=== PATIENT | female | born 1990 | race Caucasian/White ===

== ENCOUNTER → 2017-10-15 | Outpatient (REF) | payer OTHER, MEDICAID | LOC: M LAB REF 19:24 | DX: J02.9 Acute pharyngitis, unspecified (principal) | CPT/HCPCS: 87081 ==

== ENCOUNTER → 2017-11-03 | Outpatient (REF) | payer OTHER | LOC: M LAB REF 12:12 | DX: N30.00 Acute cystitis without hematuria (principal) ==

== ENCOUNTER 2018-08-05 10:01 | Emergency (ER) | payer MEDICAID, OTHER ==
[~2018-08-05] VITALS: Ht 152.4 cm; Wt 84.1 kg
[2018-08-05] MEDS ORDERED: EFFE150C2 (10:20)
[2018-08-05] MEDS ORDERED: MICR1TAB18 (10:20)
[2018-08-05] MEDS ORDERED: ABIL10TA9 (10:20)
[2018-08-05] MEDS ORDERED: ARIP1TAB4 (10:20)
[2018-08-05] MEDS ORDERED: IBUP-1114 PO (10:20)
[2018-08-05] MEDS ORDERED: NORCO, ANEXSIA 5/325MG TABLET (HYDROcodone/ACETAMINOPHEN) PO ONE (11:00)
--- NOTE | 2018-08-05 11:47 | REP ---
Left knee series: Four views. History: Pain after feeling a pop. Findings: Four views of the left knee are presented. The patient was apparently unable to position herself for the sunrise view. Four views obtained demonstrate normal bones, joints and soft tissues. No fracture is seen. There is no evidence of joint effusion. Impression: Negative radiographs of the left knee. Patient unable to do sunrise positioning. Electronically Signed by Logan Smith MD 08/05/2018 12:14 P
[2018-08-05] MEDS ORDERED: HYDR-3715 PO (12:04)
[2018-08-05] MEDS ORDERED: ONDA4TAB6 PO (12:10)
[2018-08-05 12:17] VITALS: BP 139/90
== END 2018-08-05 12:18 | disposition home or self-care (01) ==
LOC: M ED 10:01
DX: S89.92XA Unspecified injury of left lower leg, initial encounter (principal); X58.XXXA Exposure to other specified factors, initial encounter; Y92.092 Bedroom in other non-institutional residence as the place of occurrence of the external cause; Y93.89 Activity, other specified; Y99.9 Unspecified external cause status; F41.9 Anxiety disorder, unspecified; M25.861 Other specified joint disorders, right knee; Z79.899 Other long term (current) drug therapy; Z88.0 Allergy status to penicillin

== ENCOUNTER → 2018-10-01 | Outpatient (REF) | payer OTHER, MEDICAID ==
[~2018-10-01] MED LIST: ABIL10TA9; ARIP1TAB4; EFFE150C2; HYDR-3715 PO; IBUP-1114 PO; MICR1TAB18; ONDA4TAB6 PO
== END ==
LOC: M LAB REF 14:07
PROVIDERS: ATTEND Physician Assistant Medical
DX: R30.0 Dysuria (principal)

== ENCOUNTER → 2019-11-07 | Outpatient (REF) | payer OTHER | LOC: M SFHCWAGY 18:05 | PROVIDERS: ATTEND Obstetrics & Gynecology | DX: Z12.4 Encounter for screening for malignant neoplasm of cervix (principal); Z01.419 Encounter for gynecological examination (general) (routine) without abnormal findings ==

== ENCOUNTER → 2020-09-14 | Outpatient (REF) | payer OTHER, MEDICAID ==
[2020-09-14 13:07] LABS: BASO % 0.4 % (0.0-1.0); EOS # 0.1 10^3/uL (0.0-0.5); EOS % 1.8 % (0.0-3.0); HEMATOCRIT 42.9 % (36.0-47.0); HEMOGLOBIN 14.2 g/dl (12.0-15.5); LYMPH # 2.4 10^3/uL (1.5-5.0); LYMPH % 33.5 % (24.0-44.0); MEAN CORPUSCULAR HEMOGLOBIN 30.6 pg (27.0-33.0); MEAN CORPUSCULAR HGB CONC 33.1 g/dl (32.0-36.5); MEAN CORPUSCULAR VOLUME 92.5 fl (80.0-96.0); MONO # 0.6 10^3/uL (0.0-0.8); MONO % 7.9 % (2.0-8.0); NEUTROPHILS % 56.1 % (36.0-66.0); PLATELET COUNT, AUTOMATED 271 10^3/uL (150-450); RED BLOOD COUNT 4.64 10^6/uL (4.00-5.40); WHITE BLOOD COUNT 7.2 10^3/uL (4.0-10.0)
[2020-09-14 13:24] LABS: HEMOGLOBIN A1c 5.5 %
[2020-09-14 13:35] LABS: ALBUMIN 3.8 GM/DL (3.2-5.2); ALT/SGPT 18 U/L (12-78); BILIRUBIN,TOTAL 0.5 MG/DL (0.2-1.0); BLOOD UREA NITROGEN 13 MG/DL (7-18); CALCIUM LEVEL 8.8 MG/DL (8.5-10.1); CARBON DIOXIDE LEVEL 29 MEQ/L (21-32); CHLORIDE LEVEL 106 MEQ/L (98-107); CHOLESTEROL LEVEL 128 MG/DL (<200); CHOLESTEROL RISK RATIO 2.064 (<5); CREATININE FOR GFR 0.59 MG/DL (0.55-1.30); FERRITIN 21 NG/ML (8-252); GLOMERULAR FILTRATION RATE > 60.0 (>60); GLUCOSE, FASTING 78 MG/DL (70-100); HDL CHOLESTEROL 62 MG/DL (>40); IRON (FE) 62 UG/DL (50-170); LDL CHOLESTEROL 60 MG/DL (<100); NON-HDL-C 66 MG/DL; PERCENT SATURATION 18.6 % (13.2-45.0); POTASSIUM SERUM 4.3 MEQ/L (3.5-5.1); SODIUM LEVEL 141 MEQ/L (136-145); THYROID STIMULATING HORMONE 0.845 uIU/ML (0.358-3.740); TOTAL IRON BINDING CAPACITY 333 UG/DL (250-450); TOTAL PROTEIN 6.4 GM/DL (6.4-8.2); TRIGLYCERIDES LEVEL 30 MG/DL (<150)
[2020-09-14 13:39] LABS: FOLATE > 24.0 NG/ML; TOTAL 25(OH) VITAMIN D 26.2 NG/ML (30.0-100.0); VITAMIN B12 LEVEL 714 PG/ML
[2020-09-21 16:12] LABS: Lyme Disease IgG/IgM Antibodie <0.91 ISR (0.00-0.90); Lyme Disease IgM Ab Quantitati <0.80 index (0.00-0.79)
== END ==
LOC: M LABDRWAD 12:19
PROVIDERS: ATTEND Nurse Practitioner Family
DX: R00.2 Palpitations (principal); I95.9 Hypotension, unspecified; R42 Dizziness and giddiness; D64.9 Anemia, unspecified; R53.83 Other fatigue; E16.2 Hypoglycemia, unspecified

== ENCOUNTER → 2021-01-28 | Outpatient (REF) | payer OTHER | LOC: M WUC 15:57 | PROVIDERS: ATTEND Physician Assistant | DX: J02.9 Acute pharyngitis, unspecified (principal) ==

== ENCOUNTER → 2022-11-14 | Outpatient (CLI) | payer OTHER ==
[~2022-11-14] MED LIST changes: -MICR1TAB18; +NORE1TAB94
[2022-11-14 14:38] LABS: BASO % 0.4 % (0.0-1.0); EOS # 0.1 10^3/uL (0.0-0.5); EOS % 1.7 % (0.0-3.0); HEMATOCRIT 44.4 % (36.0-47.0); HEMOGLOBIN 14.8 g/dl (12.0-15.5); LYMPH # 2.7 10^3/uL (1.5-5.0); LYMPH % 37.9 % (24.0-44.0); MEAN CORPUSCULAR HEMOGLOBIN 30.6 pg (27.0-33.0); MEAN CORPUSCULAR HGB CONC 33.3 g/dl (32.0-36.5); MEAN CORPUSCULAR VOLUME 91.7 fl (80.0-96.0); MONO # 0.5 10^3/uL (0.0-0.8); MONO % 7.4 % (2.0-8.0); NEUTROPHILS # 3.7 10^3/uL (1.5-8.5); NEUTROPHILS % 52.5 % (36.0-66.0); PLATELET COUNT, AUTOMATED 245 10^3/uL (150-450); RED BLOOD COUNT 4.84 10^6/uL (4.00-5.40)
[2022-11-14 15:05] LABS: ALKALINE PHOSPHATASE 40 U/L (46-116); ALT/SGPT < 9 U/L (7.0-40); AST/SGOT < 8 U/L (<34); BILIRUBIN,TOTAL 0.8 MG/DL (0.3-1.2); BLOOD UREA NITROGEN 11 MG/DL (9-23); CALCIUM LEVEL 8.4 MG/DL (8.5-10.1); CARBON DIOXIDE LEVEL 28 MMOL/L (20-31); CHLORIDE LEVEL 106 MMOL/L (98-107); CHOLESTEROL LEVEL 141 MG/DL (<200); CHOLESTEROL RISK RATIO 2.12 (<5); CREATININE FOR GFR 0.64 MG/DL (0.55-1.30); GLOMERULAR FILTRATION RATE > 60.0 (>60); GLUCOSE, FASTING 87 MG/DL (60-100); HDL CHOLESTEROL 66.4 MG/DL (>40); LDL CHOLESTEROL 64.8 MG/DL (<100); NON-HDL-C 74.6 MG/DL; POTASSIUM SERUM 4.3 MMOL/L (3.5-5.1); SODIUM LEVEL 139 MMOL/L (136-145); TOTAL IRON BINDING CAPACITY 353 UG/DL (250-425); TOTAL PROTEIN 6.4 G/DL (5.7-8.2); TRIGLYCERIDES LEVEL 49 MG/DL (<150)
[2022-11-14 15:06] LABS: CORTISOL AM 14.2 UG/DL (4.3-22.4); IRON (FE) 118 UG/DL (50-170); PERCENT SATURATION 33.4 % (13.2-45.0)
[2022-11-14 15:09] LABS: FERRITIN 19.5 NG/ML (7.3-270.7); THYROID STIMULATING HORMONE 0.947 uIU/ML (0.55-4.78); VITAMIN B12 LEVEL 684 PG/ML (211-911)
[2022-11-14 15:10] LABS: FOLATE > 24.00 NG/ML (>5.4)
== END ==
LOC: M PLALAB 09:50
PROVIDERS: ATTEND Nurse Practitioner Family
DX: R53.83 Other fatigue (principal)

== ENCOUNTER → 2023-05-30 | Outpatient (REF) | payer OTHER, MEDICAID ==
[~2023-05-30] MED LIST changes: -EFFE150C2; +EFFE150C3
== END ==
LOC: M LAB REF 17:45
PROVIDERS: ATTEND Physician Assistant Medical
DX: J02.9 Acute pharyngitis, unspecified (principal)

== ENCOUNTER → 2025-03-28 | Outpatient (CLI) | payer OTHER, SELFPAY ==
[~2025-03-28] MED LIST changes: +NORE-23; -NORE1TAB94; +ONDA-282 PO; -ONDA4TAB6 PO
[2025-03-28 14:19] LABS: BASO # 0.0 10^3/uL (0.0-0.2); BASO % 0.5 % (0.0-1.0); EOS # 0.1 10^3/uL (0.0-0.5); EOS % 1.7 % (0.0-3.0); LYMPH # 2.9 10^3/uL (1.5-5.0); LYMPH % 37.2 % (24.0-44.0); MONO # 0.6 10^3/uL (0.0-0.8); MONO % 7.3 % (2.0-8.0); NEUTROPHILS # 4.1 10^3/uL (1.5-8.5); NEUTROPHILS % 53.0 % (36.0-66.0); PLATELET COUNT, AUTOMATED 321 10^3/uL (150-450)
[2025-03-28 14:51] LABS: FREE T4 0.91 NG/DL (0.89-1.76)
[2025-03-28 14:53] LABS: ALT/SGPT 13 U/L (7.0-40); AST/SGOT 20 U/L (<34); CALCIUM LEVEL 8.5 MG/DL (8.5-10.1); CARBON DIOXIDE LEVEL 26 MMOL/L (20-31); CHLORIDE LEVEL 106 MMOL/L (98-107); CREATININE FOR GFR 0.68 MG/DL (0.55-1.30); GLOMERULAR FILTRATION RATE > 90.0 (>60); IRON (FE) 62 UG/DL (50-170); PERCENT SATURATION 15.3 % (13.2-45.0); POTASSIUM SERUM 4.4 MMOL/L (3.5-5.1); SODIUM LEVEL 140 MMOL/L (136-145)
[2025-03-28 14:54] LABS: TOTAL 25(OH) VITAMIN D 35.5 NG/ML (20.0-100.0)
== END ==
LOC: M PLALAB 12:00
PROVIDERS: ATTEND Nurse Practitioner Family
DX: Z00.01 Encounter for general adult medical examination with abnormal findings (principal); F40.248 Other situational type phobia; D50.9 Iron deficiency anemia, unspecified